=== PATIENT | female | born 1970 | race Caucasian/White ===

== ENCOUNTER 2022-09-15 08:59 | Outpatient (OUT) | payer OTHER, SELFPAY ==
--- NOTE | 2022-09-15 09:30 | XR_ITS ---
[address] [address] Patient Name: NANETTE BRO MRN: [id number] date: 1970 Sex: F Assigned Patient Location: [facility] Current Patient Location: [facility] Accession/Order Number: [id number] Exam Date: 09/15/2022 09:30 Report Date: 09/15/2022 10:37 At the request of: JORGE GONZALEZ Procedure: XR foot RAFAEL min 3V EXAMINATION: XR foot RAFAEL min 3V HISTORY: BILATERAL FOOT PAIN COMPARISON: No relevant comparison available. FINDINGS: RIGHT FINDINGS: BONES: No acute fracture or dislocation. Minimal plantar enthesopathic spurring of the calcaneus SOFT TISSUES: Negative. No visible soft tissue swelling. OTHER: Negative. LEFT FINDINGS: BONES: No acute fracture or dislocation. Minimal enthesopathic spurring of the calcaneus at the Achilles insertion SOFT TISSUES: Negative. No visible soft tissue swelling. OTHER: Negative. XR/XR foot RAFAEL min 3V IMPRESSION: RIGHT CONCLUSION: Minimal enthesopathic changes of the calcaneus LEFT CONCLUSION: Minimal enthesopathic changes of the calcaneus Electronically authenticated by: LANDRY FOFANA Date: 09/15/2022 10:37
== END 2022-09-15 09:00 | disposition home or self-care (01) ==
LOC: RAD 08:59
PROVIDERS: Visit Provider Podiatrist Foot & Ankle Surgery
DX: M79.671 Pain in right foot (principal); M79.672 Pain in left foot; M77.32 Calcaneal spur, left foot; M77.31 Calcaneal spur, right foot
CPT/HCPCS: 73630

== ENCOUNTER 2022-10-01 07:54 | Outpatient (OUT) | payer OTHER, SELFPAY ==
--- NOTE | 2022-10-01 07:55 | VEIN_ITS ---
Patient: NANETTE BRO Exam Date: 10/01/2022 : 1970 Gender:F Ordering : DR. Triston LongPKei Admission #: [id number] Family : Order #: [id number] CLICK HERE TO VIEW EXAM RADIOLOGY REPORT PROCEDURE: FACILITY [facility] COMPREHENSIVE VEIN CENTER - OFFICE VISIT INITIAL COMPARISON: None. PROGRESS NOTES: 52-year-old female who presents with 20 year history of lower extremity pain swelling and varicose veins. The patient complains of discolored veins, muscle cramps and subcutaneous edema. The patient's has bilateral symptoms, right greater than left. The patient describes the pain as aching and burning occasionally sharp rating the pain as an 8 on a scale of 1-10. The patient's symptoms are progressed by prolonged sitting and standing worse over the last 2 years. The patient's symptoms are partially relieved by rest, leg elevation and compression stockings. The patient has previously had injection sclerotherapy for spider veins. The patient is referred by Dr. Gipson for bilateral foot pain and edema. The patient denies any signs and symptoms to suggest arterial ischemia. The patient describes a family history significant for hypertension, cancer and heart disease in her mother and father. Type 2 diabetes in varicose veins in her mother. . The patient has 2 daughters. The patient has never smoked. Occasional social alcohol use. No illicit drug use. No history of deep venous thrombus or pulmonary embolus. See separate history and physical for medication list. The patient has worn compression stockings for approximately 2 years, on and off with some relief. Nursing notes were reviewed. After history and physical exam I discussed at length the pathophysiology of venous hypertension and possible treatments, therapies and strategies available. We discussed at length the importance of elevating the lower extremities above the level of the heart, increased physical activity and compression stocking use for relief of her subcutaneous edema. The patient has mild upper thigh venous insufficiency which I do not think is resulting in her distal lower extremity swelling. Ultrasound venous reflux study performed the same day was discussed at length with the patient. The report demonstrates mild bilateral great saphenous vein insufficiency, mild right leg incompetent varicose veins. PHYSICAL EXAM: The right leg demonstrates mild diffuse spider veins. No significant varicose or reticular veins. Mild subcutaneous edema of the distal lower leg and ankle. No significant hemosiderin staining. The left leg demonstrates mild diffuse spider veins. No significant varicose or reticular veins. Mild subcutaneous edema of the distal lower leg and ankle. No significant hemosiderin staining. Both thighs, legs and feet were symmetrically warm to the touch. Good posterior tibial and dorsalis pedis pulses were present bilaterally. VEIN/VC Facility EST Comprehensive IMPRESSION: 1. Mild bilateral proximal great saphenous vein venous insufficiency 2. Mild right leg lower extremity varicose veins 3. Mild bilateral distal lower extremity subcutaneous edema 4. No definite flow significant arterial disease 5. CEAP: C2, Ep, As, Pr PLAN: 1. Follow-up in 12 months 2. Elevated legs, 20-30 mm bilateral knee high compression stockings and increased physical activity for symptomatic relief 3. Self pay sclerotherapy if desired Nurse notes, history and physical were reviewed and confirmed, see attached forms. The nurse was present throughout the physical exam and consultation Dictated by: Micheal Metzger MD on 10/01/2022 at 14:17 Approved by: Micheal Metzger MD on 10/01/2022 at 15:00
--- NOTE | 2022-10-01 07:56 | VEIN_ITS ---
Patient: NANETTE BRO Exam Date: 10/01/2022 : 1970 Gender:F Ordering : DR. Triston Gipson D.P.M. Admission #: [id number] Family : Order #: [id number] CLICK HERE TO VIEW EXAM RADIOLOGY REPORT PROCEDURE: VC EXT VENOUS REFLUX RAFAEL LMTD COMPARISON: None. INDICATIONS: I83.813 Pain due to varicose veins of bilateral leg veins TECHNIQUE: Duplex imaging of the lower extremity to assess the deep and superficial venous system for the presence of deep or superficial venous incompetence and to document the location and severity of disease. The study includes evaluation of the great saphenous vein (GSV), anterior accessory saphenous vein (AASV) and small saphenous vein (SSV). Patient scanned in reverse Trendelenburg and standing. FINDINGS: RIGHT LOWER EXTREMITY: Saphenofemoral Junction Reflux: Yes 6.7mm 2.1 sec GSV: Diam (mm) Reflux/ Time (sec) Proximal Thigh 7.7 Yes 1.0 Mid Thigh 5.5 No Distal Thigh 4.3 Yes 0.3 Prox Calf 4.5 No Mid Calf 3.8 Saphenopopliteal Junction Reflux: 4.5mm SSV: Proximal Calf 2.4 No Mid Calf 2.1 No AASV: Proximal Thigh 3.3 No Mid Thigh 3.6 No Distal Thigh Thrombi: No acute or chronic thrombus visualized Compressibility: Normal Flow: Normal Preforator: Dist/med calf 2.6mm with 0s reflux. Tech Note: Incompetent GSV. Patent varicose vein dist/med calf 2.3mm with 0.5s reflux. Patent varicose vein prox/med calf 3.8mm with 1.3s reflux. Patent varicose vein dist/med thigh 3.4mm with 0.5s reflux. Patent varicose vein mid/med 3.7mm with 0s reflux. LEFT LOWER EXTREMITY: Saphenofemoral Junction Reflux: Yes 6.8 mm 1.4 sec GSV: Diam (mm) Reflux/Time (sec) Proximal Thigh 6.4 Yes 1.1 Mid Thigh 4.9 Yes 0.8 Distal Thigh 4.4 No Prox Calf 3.1 No Mid Calf 1.6 No Saphenopopliteal Junction Relux: 2.6 mm Yes 0.8 SSV: Proximal Calf 3.0 No Mid Calf 2.6 AASV: Proximal Thigh 3.4 No Mid Thigh 2.2 No Distal Thigh Thrombi: No acute or chronic thrombus visualized Compressibility: Normal Flow: Normal Training And Documentation Specialist: No perforators visualized Tech Note: Incompetent GSV. Patent varicose vein prox/med calf 2.0mm with 0s reflux. Patent varicose vein dist/med calf 3.3mm with 0s reflux. CONCLUSION: 1. Mild bilateral great saphenous vein venous insufficiency 2. Mild right leg incompetent varicose veins Dictated by: Micheal Metzger MD on 10/01/2022 at 08:58 Approved by: Micheal Metzger MD on 10/01/2022 at 10:21
== END 2022-10-01 07:55 | disposition home or self-care (01) ==
PROVIDERS: Visit Provider Podiatrist Foot & Ankle Surgery
DX: I83.813 Varicose veins of bilateral lower extremities with pain (principal)
CPT/HCPCS: 93970; G0463